=== PATIENT | female | born 1965 | race Two or more races ===

== ENCOUNTER 2025-06-06 17:31 | Emergency (ER) | payer OTHER ==
[~2025-06-06] VITALS: Ht 154.9 cm; Wt 54.4 kg
[2025-06-06] MEDS ORDERED: ONDANSETRON HCL 2 MG/ML VIAL ONE (18:20)
[2025-06-06] MEDS ORDERED: KETOROLAC TROMETHAMINE 30 MG VIAL ONE (18:20)
[2025-06-06] MEDS ORDERED: FAMOTIDINE/PF 20 MG/2 ML VIAL ONE (18:20)
[2025-06-06] MEDS ORDERED: 0.9 % SODIUM CHLORIDE 1,000 ML IV SCH (18:30)
[2025-06-06] MEDS ORDERED: KETOROLAC TROMETHAMINE 30 MG VIAL IU ONE (18:30)
[2025-06-06] MEDS ORDERED: MORPHINE SULFATE 4 MG/ML CARTRIDGE IV ONE (18:30)
[2025-06-06] MEDS ORDERED: FAMOtidine 10 MG/ML (4ML VIAL) IV PUSH ONE (18:30)
[2025-06-06] MEDS ORDERED: ONDANSETRON HCL 4 MG in 0.9 % SODIUM CHLORIDE 50 ML IV ONE (18:30)
[2025-06-06 18:45] LABS: BASO % 0.9 % (0.1-1.2); EOS # 0.16 (0.04-0.54); EOS % 3.7 % (0.7-7.0); LYMPH # 1.88 (1.18-3.74); LYMPH % 43.2 % (19.3-53.1); MEAN PLATELET VOLUME 10.50 fl (9.4-12.4); MONO # 0.27 (0.24-0.82); MONO % 6.2 % (4.7-12.5); NEUT # 1.99 (1.56-6.13); NEUT % 45.8 % (34.0-71.1); RED CELL DISTRIBUTION WIDTH 12.9 % (11.6-14.4)
[2025-06-06 19:07] LABS: INR 0.95
[2025-06-06 19:12] LABS: ALT/SGPT 23.0 U/L (12-78); AST/SGOT 21.0 U/L (15-37); BILIRUBIN TOTAL 0.42 mg/dL (0.3-1.2); BUN CREA RATIO 16.0 (7.0-25.0); CREATININE SERUM 0.68 mg/dL (0.55-1.02); GFR 88.26; GLOBULINA 4.4 G/DL (2.4-3.5); GLUCOSE FASTING 86.0 mg/dL (65-100); OSMOLALITY SERUM 287.0 MOSM/KG (275-295)
[2025-06-06 19:16] LABS: ERYTHROCYTE SEDIMENTATION RATE 50 mm/hr (0-30)
[2025-06-06 20:10] LABS: BASOPHIL MAN 1.0 %; EOSINOPHIL MAN 3.0 %; LYMPHOCYTE MAN 40.0 %; MONOCYTE MAN 2.0 %; NEUTROPHILS MAN 51.0 %
[2025-06-06] MEDS ORDERED: SYNTHROID125 MCG (21:14)
[2025-06-06 21:23] LABS: URINE APPEARANCE Clear; URINE BILIRRUBIN Negative (NEGATIVE); URINE BLOOD Negative; URINE COLOR Yellow; URINE GLUCOSE Negative (NEGATIVE); URINE KETONE Negative (NEGATIVE); URINE LEUKOCYTE Negative; URINE NITRATE Negative; URINE PROTEIN Negative (NEGATIVE); URINE UROBILINOGEN 0.2 E.U./dl
[2025-06-06 21:26] LABS: URINE BACTERIA 199.0 uL (0.0-1933); URINE EPITHELIAL CELLS 5.3 uL (0.0-38.8); URINE WBC 5.3 uL (0.0-23.2)
[2025-06-06 21:32] LABS: URINE CAST 0.29 uL (0.0-1.40); URINE RBC 0.7 uL (0.0-20.8)
[2025-06-06] MEDS ORDERED: PEPCID AC20 MG PO (22:28)
[2025-06-06] MEDS ORDERED: KETO10TA2 PO (22:28)
[2025-06-06] MEDS ORDERED: DICY20TA PO (22:28)
== END 2025-06-06 23:22 | disposition home or self-care (01) ==
LOC: ER 17:32
PROVIDERS: General Practice
DX: R10.31 Right lower quadrant pain (principal); R10.9 Unspecified abdominal pain; E03.8 Other specified hypothyroidism; Z88.1 Allergy status to other antibiotic agents
CPT/HCPCS: 36415; 74177; Q9965